=== PATIENT | male | born 1970 | race Caucasian/White ===

== ENCOUNTER 2020-06-16 12:13 | Emergency (ER) | payer BC ==
[~2020-06-16] VITALS: Ht 170.2 cm; Wt 76.9 kg
[~2020-06-16 12:13] MED LIST: LISI-170 PO; METH500T97 PO
[2020-06-16 12:17] VITALS: BP 147/74
[2020-06-16] MEDS ORDERED: LORazepam 1MG TABLET ONE (12:49)
[2020-06-16] MEDS ORDERED: LORazepam 1MG TABLET PO ONE (13:00)
--- NOTE | 2020-06-16 13:02 | NUR ---
Patient given discharge instructions and they have confirmed that they understand the instructions. Patient ambulatory with steady gait.
== END 2020-06-16 13:04 | disposition home or self-care (01) ==
LOC: ED 12:45
DX: F41.1 Generalized anxiety disorder (principal); R42 Dizziness and giddiness; I10 Essential (primary) hypertension; E11.9 Type 2 diabetes mellitus without complications
CPT/HCPCS: 99283